=== PATIENT | female | born 1950 | race Caucasian/White ===

== ENCOUNTER 2021-02-01 16:13 | Emergency (ER) | payer MEDICAID ==
[~2021-02-01] VITALS: Ht 167.6 cm; Wt 73.0 kg
[2021-02-01] MEDS ORDERED: ACETAMINOPHEN 325MG TABLET PO STA (16:54)
[2021-02-01 20:36] VITALS: BP 148/75
== END 2021-02-01 21:00 | disposition home or self-care (01) ==
LOC: ER 16:13
DX: S50.311A Abrasion of right elbow, initial encounter (principal); M25.552 Pain in left hip; E78.00 Pure hypercholesterolemia, unspecified; E11.9 Type 2 diabetes mellitus without complications; I51.9 Heart disease, unspecified; Y04.0XXA Assault by unarmed brawl or fight, initial encounter; Y93.89 Activity, other specified; Y92.89 Other specified places as the place of occurrence of the external cause
CPT/HCPCS: 71045; 72170; 99285